=== PATIENT | female | born 1945 | race Caucasian/White ===

== ENCOUNTER → 2018-10-27 | Outpatient (CLI) | payer MEDICARE ==
[~2018-10-27] MED LIST: AMBIEN5 MG PO; AMOXICILLIN 8751 TAB PO; MUCINEX 60600 MG/TAB PO
== END ==
LOC: SUN.DIA 08:17
DX: E11.9 Type 2 diabetes mellitus without complications (principal)
CPT/HCPCS: G0108

== ENCOUNTER → 2018-12-02 | Outpatient (CLI) | payer MEDICARE | LOC: MC.RAD 13:30 | DX: Z12.31 Encounter for screening mammogram for malignant neoplasm of breast (principal) ==

== ENCOUNTER → 2018-12-09 | Outpatient (CLI) | payer MEDICARE | LOC: DIA.ED 13:25 | DX: E11.9 Type 2 diabetes mellitus without complications (principal) ==

== ENCOUNTER → 2018-12-11 | Outpatient (CLI) | payer MEDICARE | LOC: DIA.ED 08:27 | DX: E11.9 Type 2 diabetes mellitus without complications (principal) | CPT/HCPCS: G0109 ==

== ENCOUNTER → 2018-12-25 | Outpatient (CLI) | payer MEDICARE | LOC: DIA.ED 12-18 16:15 | DX: E11.9 Type 2 diabetes mellitus without complications (principal) | CPT/HCPCS: G0109 ==

== ENCOUNTER → 2019-01-01 | Outpatient (CLI) | payer MEDICARE | LOC: DIA.ED 09:30 | DX: E11.9 Type 2 diabetes mellitus without complications (principal) | CPT/HCPCS: G0109 ==

== ENCOUNTER → 2019-01-20 | Outpatient (CLI) | payer MEDICARE | LOC: DIA.ED 13:26 | DX: E11.9 Type 2 diabetes mellitus without complications (principal) ==

== ENCOUNTER 2019-12-28 11:08 | Emergency (ER) | payer MEDICARE ==
[~2019-12-28] VITALS: Ht 167.6 cm; Wt 63.2 kg
[2019-12-28 11:14] VITALS: TEMP 98
[2019-12-28] MEDS ORDERED: CRESTOR 10MG10 MG PO (11:19)
[2019-12-28 12:40] VITALS: BP 149/73; PULSE 69
== END 2019-12-28 12:40 | disposition home or self-care (01) ==
LOC: COL.ER 11:08
DX: S06.0X0A Concussion without loss of consciousness, initial encounter (principal); S00.03XA Contusion of scalp, initial encounter; S80.812A Abrasion, left lower leg, initial encounter; S80.811A Abrasion, right lower leg, initial encounter; E78.5 Hyperlipidemia, unspecified; W10.9XXA Fall (on) (from) unspecified stairs and steps, initial encounter; W22.8XXA Striking against or struck by other objects, initial encounter; Y92.009 Unspecified place in unspecified non-institutional (private) residence as the place of occurrence of the external cause